=== PATIENT | male | born 1965 | race Two or more races ===

== ENCOUNTER 2024-02-07 13:49 | Inpatient (IN) | payer OTHER ==
[2024-02-07 17:02] VITALS: BMI 42.8
[2024-02-07] MEDS ORDERED: DICYCLOMINE HCL 10 MG CAPSULE PO PRN (18:50)
[2024-02-07] MEDS ORDERED: BENZONATATE 200 MG CAPSULE PO PRN (18:50)
[2024-02-07] MEDS ORDERED: BISMUTH SUBSALICYLATE 524 MG/30 ML PO PRN (18:50)
[2024-02-07] MEDS ORDERED: hydrOXYzine PAMOATE 25 MG CAPSULE (FP) PO PRN (18:50)
[2024-02-07] MEDS ORDERED: NALOXONE (NARCAN) HCL 4 MG/0.1 ML SPRAY NS PRN (18:50)
[2024-02-07] MEDS ORDERED: MAG HYDROX/AL HYDROX/SIMETH 30 ML UNIT-DOSE CUP PO PRN (18:50)
[2024-02-07] MEDS ORDERED: NICOTINE POLACRILEX 4 MG GUM BUC PRN (18:50)
[2024-02-07] MEDS ORDERED: ACETAMINOPHEN 325 MG TABLET (FP) PO PRN (18:50)
[2024-02-07] MEDS ORDERED: BENZOCAINE/MENTHOL (CHLORASEPTIC ) LOZENGE MM PRN (18:50)
[2024-02-07] MEDS ORDERED: MAGNESIUM HYDROX 2400MG/30ML ORAL SUSPENSION 30 ML CUP PO PRN (18:50)
[2024-02-07] MEDS ORDERED: POLYETHYLENE GLYCOL (HEALTHYLAX) 3350 17 GM PACKET PO PRN (18:50)
[2024-02-07] MEDS ORDERED: ONDANSETRON *ODT* 4 MG TABLET SL PRN (18:50)
[2024-02-07] MEDS ORDERED: LOPERAMIDE HCL 2 MG CAPSULE PO PRN (18:50)
[2024-02-07] MEDS ORDERED: guaiFENesin 600 MG TABLET.ER (FP) PO PRN (18:50)
[2024-02-07] MEDS: amLODIPine BESYLATE 10 MG TABLET (FP) PO ONE (21:20)
[2024-02-07] MEDS: MELATONIN 5 MG TABLETS PO SCH (22:27)
[2024-02-07] MEDS: THIAMINE 100 MG TABLET PO SCH (22:28)
[2024-02-07] MEDS: DOXYCYCLINE HYCLATE 100 MG TABLET PO SCH (22:29)
[2024-02-07] MEDS: diazePAM 5 MG TABLET PO SCH (22:33)
[2024-02-08] MEDS: INSULIN ASPART SLIDING SCALE (NOVOLOG) 1 VIAL SQ SCH (06:17)
[2024-02-08] MEDS: PRENATAL VITAMINS W/ FOLIC ACID TABLET (FP) PO SCH (10:51)
[2024-02-08] MEDS: LISINOPRIL 20 MG TABLET PO ONE (11:43)
[2024-02-08] MEDS: diazePAM 5 MG TABLET PO PRN (11:47)
[2024-02-08 15:00] LABS: HEMATOCRIT 38.1 % (35.4-49); HEMOGLOBIN 12.3 GM/dL (11.7-16.9); MCH 26.6 pg (25.7-33.7); MCHC 32.4 g/dl (32.0-35.9); MEAN CELL VOLUME 82.1 fl (80-96); MEAN PLT VOLUME 7.9 fl (7.5-11.1); PLATELET COUNT 360 10^3/uL (134-434); RBC 4.64 M/mm3 (4.00-5.60); RDW 14.9 % (11.9-15.9); WHITE BLOOD COUNT 13.8 K/mm3 (4.0-10.0)
[2024-02-08 15:31] LABS: CHLORIDE 106 mmol/L (98-107); POTASSIUM 4.1 mmol/L (3.5-5.1); SODIUM 139 mmol/L (136-145)
[2024-02-08] MEDS: PATIENT'S OWN MEDICATION (NON-FORMULARY) (Apremilast [Otezla] 30 MG Tablet) PO SCH (15:33)
[2024-02-08 15:36] LABS: ALBUMIN 2.1 g/dl (3.4-5.0); ANION GAP 6 mmol/L (4-13); BLOOD UREA NITROGEN 14.2 mg/dL (7-18); CALCIUM 8.7 mg/dL (8.5-10.1); CO2 27 mmol/L (21-32); GLUCOSE,RANDOM 244 mg/dL (74-106)
[2024-02-08 15:39] LABS: ALK PHOS 127 U/L (45-117); SGOT/AST 20 U/L (15-37); SGPT/ALT 17 U/L (13-61)
[2024-02-08 15:41] LABS: TOT PROT 6.1 g/dl (6.4-8.2)
[2024-02-08 15:42] LABS: BILIRUBIN,TOTAL 0.4 mg/dL (0.2-1)
[2024-02-08] MEDS ORDERED: APREMILAST 30 MG PO SCH (17:00)
[2024-02-08] MEDS: INSULIN (LEVEMIR) 100 UNITS/ML UNITS SQ SCH (22:35)
[2024-02-08] MEDS: MELATONIN 5 MG TABLETS PO SCH (22:36)
[2024-02-08] MEDS: METHOCARBAMOL 500 MG TABLET PO PRN (22:36)
[2024-02-09] MEDS: diazePAM 5 MG TABLET PO SCH (06:36)
[2024-02-09] MEDS ORDERED: IBUPROFEN 600 MG TABLET (FP) PO PRN (07:23)
[2024-02-09] MEDS ORDERED: BISMUTH SUBSALICYLATE 262 MG/15 ML BTL PO PRN (08:22)
[2024-02-09] MEDS: APREMILAST 30 MG PO SCH (09:43)
[2024-02-10] MEDS: diazePAM 5 MG TABLET PO SCH (06:13)
[2024-02-10 10:41] LABS: HEMATOCRIT 36.3 % (35.4-49); MCH 27.2 pg (25.7-33.7); MCHC 33.1 g/dl (32.0-35.9); MEAN PLT VOLUME 8.3 fl (7.5-11.1); PLATELET COUNT 328 10^3/uL (134-434); RBC 4.43 M/mm3 (4.00-5.60); RDW 14.6 % (11.9-15.9); WHITE BLOOD COUNT 12.8 K/mm3 (4.0-10.0)
[2024-02-11] MEDS: diazePAM 5 MG TABLET PO ONE (06:12)
[2024-02-13 10:02] VITALS: BP 160/81; PULSE 73; RESP 16; TEMP 98
[2024-02-13] MEDS: NALOXONE (NYS OPIOID OVERDOSE PROGRAM) 4 MG/0.1 ML SPRAY NS PRN (10:46)
== END 2024-02-13 11:06 | disposition home or self-care (01) | DRG 897 ==
LOC: YASAS 13:49 → Y3N 20:26
PROVIDERS: ADMIT Allergy & Immunology; ATTEND Surgery
PROC: HZ2ZZZZ Detoxification Services for Substance Abuse Treatment (ICD-10-PCS; principal; 2024-02-07)
DX: F10.230 Alcohol dependence with withdrawal, uncomplicated (principal); F19.282 Other psychoactive substance dependence with psychoactive substance-induced sleep disorder; F17.210 Nicotine dependence, cigarettes, uncomplicated; I48.0 Paroxysmal atrial fibrillation; I10 Essential (primary) hypertension; E11.9 Type 2 diabetes mellitus without complications; Z79.4 Long term (current) use of insulin; L40.9 Psoriasis, unspecified; L73.2 Hidradenitis suppurativa
CPT/HCPCS: 36415; 71046-TC-FY; 80053; 80305; 80307; 82962; 85027; 86780; 87811; 93005; 93010